=== PATIENT | male | born 1955 | race Caucasian/White ===

== ENCOUNTER → 2019-03-28 12:29 | Outpatient (CLI) | payer OTHER, SELFPAY ==
--- NOTE | 2019-03-28 | DI.CT.S_ITS ---
PROCEDURE: CT ABDOMEN PELVIS WO/W CON INDICATIONS: GROSS HEMATURIA TECHNIQUE: Optional 5 mm thick noncontrast images acquired from the diaphragm to the symphysis pubis. After the administration of intravenous contrast, 5 mm thick images acquired from the diaphragm to the symphysis pubis after a 10-minute delay. 2 mm thick coronal and sagittal reformats were then performed of the kidneys and ureters. For radiation dose reduction, the following was used: automated exposure control, adjustment of mA and/or kV according to patient size. COMPARISON: None. FINDINGS: Image quality: Excellent. Lung bases: Bibasilar atelectasis. Heart size is normal. Urinary system: Both kidneys are normal in size. No renal stones or hydronephrosis. There is normal bilateral renal enhancement. Renal calyces appear normal in morphology when filled with contrast. There are bilateral parapelvic cysts. No solid renal masses. Visualized portion of both ureters demonstrate normal caliber. There are multiple masses arising from the bladder wall, highly suspicious for neuroepithelial neoplasm is. The largest mass arises from the right anterior lower bladder wall measuring 3.4 x 2.8 cm. A 1.7 x 1.0 cm mass is seen attached to the right lateral bladder wall. There is a 1.1 x 2.4 cm mass in the right bladder base. There is 7 x 1.0 cm mass in the left bladder base. Bladder wall is diffusely irregular. Smaller bladder masses may be present. No calcified bladder stones. There are surgical clips in scrotum. Small hydroceles are present in scrotum bilaterally. Other solid organs: Liver is normal in size and enhancement. There is a 9 mm hypodensity in the right hepatic lobe, most likely a cyst. Gallbladder is normal. Biliary system is non dilated. Pancreas enhances normally. Spleen is normal in size and enhancement. Bilateral adrenal thickening. No adrenal nodules. Peritoneum and bowel: Bowel loops demonstrate normal wall thickness and caliber. No free fluid or air. Nodes and vessels: No retroperitoneal or mesenteric adenopathy by size criteria. Aorta and inferior vena cava are normal in size. Abdominal wall: No ventral hernias. Pelvis: No pathologic free pelvic fluid. No inguinal hernias or adenopathy. Bones: No suspicious bony lesions. No vertebral body compression fractures. IMPRESSION: 1. 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 Recommend cystoscopy and biopsy for further evaluation. 2. No renal stones or hydronephrosis. 3. Bilateral parapelvic renal cysts. 4. A 9 mm low density nodule in liver is most likely hepatic cyst. 5. Bilateral adrenal thickening. No adrenal masses. 6. Bilateral hydroceles in scrotum. Surgical clips in scrotum may be related to vasectomy. Recommend clinical correlation. Dictated by: Fabiola Lanza M.D. on 03/29/2019 at 14:04 Approved by: Fabiola Lanza M.D. on 03/29/2019 at 14:32
== END ==
PROVIDERS: Visit Provider Family Medicine
DX: R31.0 Gross hematuria (principal); N32.9 Bladder disorder, unspecified; N28.1 Cyst of kidney, acquired; K76.9 Liver disease, unspecified; N43.3 Hydrocele, unspecified
CPT/HCPCS: 74178; Q9967